=== PATIENT | male | born 1985 | race Two or more races ===

== ENCOUNTER 2018-10-29 00:15 | Emergency (ER) | payer SELFPAY ==
[~2018-10-29] VITALS: Ht 172.7 cm; Wt 81.6 kg
--- NOTE | 2018-10-29 00:15 | NUR ---
PT BIBRA FROM STREET FOR ALCOHOL INTOXICATION. STRONG SMELL OF ALCOHOL ON ARRIVAL. DENIES SI/HI. PT EASILY AROUSABLE. VITAL SIGNS STABLE. RESPIRATIONS EVEN AND UNLABORED. SKIN INTACT. NO ACUTE DISTRESS NOTED AT THIS TIME. WILL CONTINUE TO MONITOR
[2018-10-29] MEDS ORDERED: IV NS 0.9% 1,000 ML BAG IV ONE (00:30)
--- NOTE | 2018-10-29 01:35 | NUR ---
WILMAR (BROTHER) CONTACT INFORMATION:
--- NOTE | 2018-10-29 02:38 | NUR ---
PT RESTING COMFORTABLY IN BED. VITAL SIGNS STABLE. NO ACUTE DISTRESS NOTED AT THIS TIME. WILL CONTINUE TO MONITOR
--- NOTE | 2018-10-29 04:56 | NUR ---
Patient is resting comfortably in bed with eyes closed. Easily aroused. VSS
--- NOTE | 2018-10-29 05:20 | NUR ---
PT [id number]. ABLE TO AMBULATE WITH STEADY GAIT. VITAL SIGNS STABLE
--- NOTE | 2018-10-29 05:47 | NUR ---
Pt ok to discharge home per Dr Garcia. Patient discharged to home in stable condition. Written and verbal after care instructions given. Patient verbalizes understanding of instruction.Patient is awake and alert to self, day, and place. Pt ambulatory with a steady gait IV removed. Catheter intact and site benign. Pressure and 4x4 applied to site. No bleeding noted.
[2018-10-29 05:48] VITALS: BP 124/65
== END 2018-10-29 05:49 | disposition home or self-care (01) ==
LOC: ER 00:17
DX: F10.129 Alcohol abuse with intoxication, unspecified (principal); Y90.8 Blood alcohol level of 240 mg/100 ml or more
CPT/HCPCS: 36415; 80307; 99283; J7030 ×2; G0480